=== PATIENT | female | born 1980 | race Caucasian/White ===

== ENCOUNTER 2023-08-10 16:55 | Outpatient (RCR) | payer BC, SELFPAY | END 2023-08-10 23:59 | disposition home or self-care (01) | LOC: RPT 16:55 | PROVIDERS: ATTENDING PHYSICIAN Nurse Practitioner | DX: S16.1XXD Strain of muscle, fascia and tendon at neck level, subsequent encounter (principal); Z73.6 Limitation of activities due to disability | CPT/HCPCS: 97010; 97110; 97140 ==

== ENCOUNTER 2023-09-05 16:54 | Outpatient (RCR) | payer BC, SELFPAY | END 2023-09-05 23:59 | disposition home or self-care (01) | LOC: RPT 16:54 | PROVIDERS: ATTENDING PHYSICIAN Nurse Practitioner | DX: S16.1XXD Strain of muscle, fascia and tendon at neck level, subsequent encounter (principal); Z73.6 Limitation of activities due to disability; R51.9 Headache, unspecified; R20.2 Paresthesia of skin; X58.XXXD Exposure to other specified factors, subsequent encounter | CPT/HCPCS: 97010; 97110; 97140 ==

== ENCOUNTER 2023-10-09 17:51 | Outpatient (RCR) | payer BC, SELFPAY | END 2023-10-09 23:59 | disposition home or self-care (01) | LOC: RPT 17:51 | PROVIDERS: ATTENDING PHYSICIAN Nurse Practitioner | DX: S16.1XXD Strain of muscle, fascia and tendon at neck level, subsequent encounter (principal); Z73.6 Limitation of activities due to disability; M54.6 Pain in thoracic spine; R20.0 Anesthesia of skin; R20.2 Paresthesia of skin | CPT/HCPCS: 97010; 97110; 97112; 97140 ==

== ENCOUNTER 2023-10-25 17:23 | Outpatient (RCR) | payer BC, SELFPAY | END 2023-10-25 23:59 | disposition home or self-care (01) | LOC: RPT 17:23 | PROVIDERS: ATTENDING PHYSICIAN Nurse Practitioner | DX: S16.1XXD Strain of muscle, fascia and tendon at neck level, subsequent encounter (principal); Z73.6 Limitation of activities due to disability | CPT/HCPCS: 97010; 97110; 97140 ==

== ENCOUNTER 2023-11-13 17:29 | Outpatient (RCR) | payer BC, SELFPAY | END 2023-11-13 23:59 | disposition home or self-care (01) | LOC: RPT 17:29 | PROVIDERS: ATTENDING PHYSICIAN Nurse Practitioner | DX: S16.1XXD Strain of muscle, fascia and tendon at neck level, subsequent encounter (principal); Z73.6 Limitation of activities due to disability | CPT/HCPCS: 97110; 97140 ==

== ENCOUNTER → 2023-11-20 15:49 | Outpatient (REF) | payer BC, SELFPAY | LOC: WDC 15:49 | PROVIDERS: ATTENDING PHYSICIAN Obstetrics & Gynecology; FAMILY PHYSICIAN Nurse Practitioner | DX: Z12.31 Encounter for screening mammogram for malignant neoplasm of breast (principal) | CPT/HCPCS: 77063; 77067 ==

== ENCOUNTER → 2024-03-19 20:59 | Outpatient (REF) | payer BC, SELFPAY | LOC: PAVMRI 20:59 | PROVIDERS: ATTENDING PHYSICIAN Physician Assistant Surgical; FAMILY PHYSICIAN Nurse Practitioner | DX: M25.572 Pain in left ankle and joints of left foot (principal) | CPT/HCPCS: 73721 ==

== ENCOUNTER → 2024-04-04 17:09 | Outpatient (REF) | payer BC, SELFPAY | LOC: CPAP 17:09 | PROVIDERS: ATTENDING PHYSICIAN Obstetrics & Gynecology | DX: Z01.419 Encounter for gynecological examination (general) (routine) without abnormal findings (principal); Z11.51 Encounter for screening for human papillomavirus (HPV) | CPT/HCPCS: 87624; G0123 ==

== ENCOUNTER → 2024-04-29 10:59 | Outpatient (REF) | payer BC, SELFPAY | LOC: DHSLP 10:59 | PROVIDERS: ATTENDING PHYSICIAN Internal Medicine; FAMILY PHYSICIAN Internal Medicine | DX: G47.19 Other hypersomnia (principal); R06.83 Snoring | CPT/HCPCS: 95800 ==

== ENCOUNTER → 2024-05-17 10:52 | Outpatient (REF) | payer BC, SELFPAY | LOC: CLAB 10:52 | PROVIDERS: ATTENDING PHYSICIAN Nurse Practitioner | DX: J06.9 Acute upper respiratory infection, unspecified (principal) | CPT/HCPCS: 87502; 87807 ==

== ENCOUNTER → 2024-06-04 11:47 | Outpatient (REF) | payer BC, SELFPAY | LOC: UCDH 11:47 | PROVIDERS: ATTENDING PHYSICIAN Emergency Medicine; FAMILY PHYSICIAN Nurse Practitioner | DX: J22 Unspecified acute lower respiratory infection (principal) | CPT/HCPCS: 71046 ==

== ENCOUNTER 2024-06-10 17:20 | Outpatient (RCR) | payer BC, SELFPAY | END 2024-06-10 23:59 | disposition home or self-care (01) | LOC: RPT 17:20 | PROVIDERS: ATTENDING PHYSICIAN Student in an Organized Health Care Education/Training Program; FAMILY PHYSICIAN Nurse Practitioner | DX: M25.572 Pain in left ankle and joints of left foot (principal); Z73.6 Limitation of activities due to disability; M25.472 Effusion, left ankle; R26.89 Other abnormalities of gait and mobility | CPT/HCPCS: 97110; 97162; 97535 ==

== ENCOUNTER → 2024-11-20 15:55 | Outpatient (REF) | payer BC, SELFPAY | LOC: WDC 15:55 | PROVIDERS: ATTENDING PHYSICIAN Obstetrics & Gynecology; FAMILY PHYSICIAN Nurse Practitioner | DX: Z12.31 Encounter for screening mammogram for malignant neoplasm of breast (principal) | CPT/HCPCS: 77063; 77067 ==

== ENCOUNTER 2025-01-17 11:30 | Emergency (ER) | payer BC, SELFPAY ==
[2025-01-17 11:45] VITALS: BP 148/88
[2025-01-17 12:33] VITALS: BP 134/95
[2025-01-17 13:00] VITALS: BP 119/85
[2025-01-17 13:45] LABS: Hematocrit 39.4 % (37.0-47.0); Hemoglobin 13.3 g/dL (12.0-16.0); Mean Corp Hgb Conc. 33.8 g/dL (33.0-37.0); Mean Corpuscular Volume 89.3 fL (81.0-99.0); Nucleated Red Blood Cells % 0 %; Platelet Count 369 10^3/uL (130-400); Red Cell Dist. Width 11.6 % (11.5-14.5)
[2025-01-17 13:55] LABS: ALT (SGPT) 20 U/L (0-35); AST (SGOT) 24 U/L (14-36); Albumin 4.7 g/dl (3.5-5.0); Alkaline Phosphatase 71 U/L (38-126); Blood Urea Nitrogen 12 mg/dl (7-17); Calcium 9.7 mg/dl (8.4-10.2); Carbon Dioxide 25 mmol/L (22-30); Chloride 104 mmol/L (98-107); Glucose 74 mg/dl (70-99); Potassium 4.5 mmol/L (3.5-5.1); Sodium 138 mmol/L (135-145); Total Protein 8.2 g/dl (6.3-8.2); eGFR > 60.00
[2025-01-17 14:00] VITALS: BP 116/90
[2025-01-17 14:06] LABS: D-Dimer 0.30 ug/mlFEU (0.00-0.50)
[2025-01-17 14:07] LABS: Troponin I < 0.012 ng/ml
--- NOTE | 2025-01-17 14:10 | ED.GENMED ---
History of Present Illness
General
Chief Complaint: Heart Rate Problem
Time Seen by Provider: 01/17/25 13:26
History of Present Illness
History of Present Illness:
44-year-old female with prior history of SVT on propranolol presenting to the emergency department for elevated heart rate and pain with deep inspiration. Patient reports symptoms started this morning, however when she went to work felt that they
worsen. 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 Patient is on control, however denies any history of blood clots, or any lower extremity
swelling. Notes a mild cough, nonproductive. Denies association with chest pain. Denies any fever. Does note family history of blood clots in her family. Reports that her heart rate is usually controlled, 70 to 80s. Denies additional acute
medical complaints
Past History
Past History
ED Past Medical History: HTN and Psychiatric (Anxiety\\depression)
ED Past Surgical History: Gynecological
Social History
Tobacco: Non-smoker
Personal:
Living: with family
Employment: Employed
Phy Exam
Physical Exam
Physical Exam:
General: Well-appearing, no clinical signs of dehydration, nontoxic and in no acute distress
HEENT: protecting airway
Neck: appears supple
CV: Tachycardic, regular rhythm, no evidence of cyanosis
Resp: No accessory muscle use, no increased work of breathing, lungs clear to auscultation bilaterally
Abd: no distension
Extremities: No deformities, no swelling, no erythema
Neuro: alert, no focal neurologic deficit
: deferred
Rectal: deferred
Psych: Normal affect
Skin: Intact
Course
Orders/Labs/Results
Orders:
Orders
01/17/25 11:31
EKG [Electrocardiogram (*1)] Urgent
Reason for Study: Palpitations
01/17/25 11:32
EKG- Treatment ONCE
01/17/25 13:32
Complete Blood Count/With Diff Urgent
Comprehensive Metabolic Panel Urgent
D-Dimer Urgent
HCG, Serum Qualitative Screen Urgent
Comment: ADD ON
Troponin I Urgent
01/17/25 14:09
CT Chest PE Study Urgent
Comment:
Reason For Exam: tachycardia, on BC, SOB, hx clots in family
01/17/25 14:13
Test Result ONCE
01/17/25 14:21
Add On- LAB Urgent
Tests Added?: Hcg qualitative
Abnormal Lab Results
01/17/25
13:32
WBC 17.0 H 10^3/uL
(4.8-10.8)
Abs Immat Gran (auto) 0.1 H 10^3/uL
(0-0.05)
Absolute Neuts (auto) 14.8 H 10^3/uL
(1.4-6.5)
Neutrophils % 86.9 H %
(42.2-75.2)
Lymphocytes % 8.4 L %
(20.5-51.1)
01/17/25 13:32
01/17/25 13:32
Vital Signs
Initial and Last Documented VS:
Initial Vital Signs
Temp Pulse Resp BP Pulse Ox
98.7 F 94 16 148/88 98
01/17/25 11:45 01/17/25 11:45 01/17/25 11:45 01/17/25 11:45 01/17/25 11:45
Last Documented Vital Signs
Temp Pulse Resp BP Pulse Ox
98.7 F 101 16 116/90 96
01/17/25 11:45 01/17/25 14:00 01/17/25 14:00 01/17/25 14:00 01/17/25 14:12
MDM/Problems Addressed
MDM/Problems Addressed:
44-year-old female with prior history of SVT on propranolol presenting to the emergency department for concern of tachycardia and pain with deep inspiration in her chest. Vital signs significant for tachycardia.
On exam, patient resting comfortably, no acute distress or discomfort. EKG obtained on arrival, sinus tachycardia, no arrhythmia. Patient's primary concern is PE, which is reasonable given that she is on control, family history of blood
clots in the past and patient's presenting symptoms. Notes that her heart rate is typically controlled. No ischemic abnormality on EKG, without present concern for ACS. Plan for laboratory analysis including dimer.
14:30 - Dimer and troponin within normal limits. However remains tachycardic at rest. For this reason we will proceed with CT PE. Of note, elevated white blood cell count. Patient notes some mild cough which started this morning. Possible
developing pneumonia
16:35 -CT without acute pathology. On reassessment patient remains a stable. At this time feel stable for discharge. Patient does note that she has issues with her sinus, has been having some sinus congestion. Possibly developing a sinus
infection. No present indication for antibiotics, however will prescribe amoxicillin, advised that if fever develops or increasing pain to start taking the medication. Patient also cautioned that if cough is worsening, development of fever, to
return to the hospital. Also advised follow-up with cardiology given presenting tachycardia. Return precautions discussed
*Pulse Oximetry
SaO2: 96
Oxygen Mode of Delivery: Room air
Patient hypoxic: no
*EKG
Interpreted by ED Provider?: Yes
EKG Intrepretation Date: 01/17/25
EKG Intrepretation Time: 14:30
Interpretation: normal
Heart Rate: 102
Rate: tachycardiac
Rhythm: sinus
[place]: normal axis
Interval: normal interval
QRS Pattern: normal QRS
Ischemia: no ischemia
*Critical Care Note
Total Time (30-74mins, 75-104mins- exclusive of procedures): Not Applicable
ED Attending Note
-
Portions of this chart may have been created with voice recognition software.� Occasional wrong word or��sound alike� substitutions may have occurred due to the inherent limitations of voice recognition software.
Discharge Plan
Departure
Patient Disposition: Home (Routine Discharge)
Date of Disposition: 01/17/25
Time of Disposition: 16:35
Patient with high blood pressure during this ER visit?: No
Condition: Good
Discharge Problem:
Tachycardia, Near syncope
Instructions: Tachycardia, Near Fainting (DC)
Prescriptions:
New
amoxicillin-pot clavulanate 875-125 mg tablet
1 tab PO BID 7 Days Qty: 14 0RF
No Action
No Current Medications
meclizine 25 MG tablet
25 mg PO Q8HPRN PRN (Reason: vertigo) Qty: 15 0RF
ibuprofen 600 MG tablet
600 mg PO Q6 Qty: 20 0RF
Referrals:
Chantel Muñoz CRNP [Family Provider, Internal Medicine]
Activity Restrictions/Additional Instructions:
You were seen in the emergency department for elevated heart rate and a near passing out episode
You were found to have reassuring EKG, laboratory analysis, vital signs, CT imaging of your chest. We recommend that you follow-up with a financial sales assistant. Right blood cell count was slightly elevated which could be indicative of infection. If you
start to develop worsening cough, fever or difficulty breathing, please follow-up with your doctor or return immediately to the hospital
Return to the emergency department for any worsening of your symptoms, or any development of chest pain, difficulty breathing, abdominal pain with persistent vomiting and inability to tolerate food or liquid by mouth (concern for dehydration),
weakness, headache or confusion, fever greater than 100.4, or any additional symptoms that are concerning to you.
Thank you for choosing [facility].
Interventions
Interventions:
*Risk Screen - Suicide Last Done: 01/17/25 11:45
*General Assessment Last Done: 01/17/25 14:10
*Neglect/Abuse Screening Last Done: 01/17/25 11:45
*ED- Fall Risk Assessment Last Done: 01/17/25 14:10
*ED COVID-19 Vaccine History Last Done: 01/17/25 14:10
*Nursing Disposition Last Done: 01/17/25 17:54
ED- Cardiac Assessment Last Done: 01/17/25 14:09
ED- Pulmonary Assessment Last Done: 01/17/25 14:09
Discharge Date and Time
Discharge Date/Time: 01/17/25 17:54
Print Language: PANAMANIAN
[2025-01-17 14:44] LABS: HCG, Serum Qualitative Screen Negative
== END 2025-01-17 17:54 | disposition home or self-care (01) ==
LOC: EMR 11:30
PROVIDERS: EMERGENCY PHYSICIAN Student in an Organized Health Care Education/Training Program; FAMILY PHYSICIAN Nurse Practitioner
DX: R00.0 Tachycardia, unspecified (principal); R55 Syncope and collapse
CPT/HCPCS: 99285; 71275; 80053; 84484; 84703; 85025; 85379; 93005; Q9967

== ENCOUNTER → 2025-04-07 09:12 | Outpatient (REF) | payer BC, SELFPAY ==
[2025-04-11 04:01] LABS: HPV, High Risk Detected; HPV, High Risk Source Cervical
== END ==
LOC: CPAP 09:12
PROVIDERS: ATTENDING PHYSICIAN Obstetrics & Gynecology
DX: Z01.419 Encounter for gynecological examination (general) (routine) without abnormal findings (principal); Z11.51 Encounter for screening for human papillomavirus (HPV)
CPT/HCPCS: 87624; G0123

== ENCOUNTER → 2025-04-12 09:08 | Outpatient (REF) | payer BC, SELFPAY ==
[2025-04-12 09:59] LABS: Hematocrit 40.2 % (37.0-47.0); Hemoglobin 12.9 g/dL (12.0-16.0); Mean Corp Hgb Conc. 32.1 g/dL (33.0-37.0); Mean Corpuscular Volume 94.4 fL (81.0-99.0); Nucleated Red Blood Cells % 0 %; Platelet Count 364 10^3/uL (130-400); Red Cell Dist. Width 11.8 % (11.5-14.5)
[2025-04-12 10:33] LABS: ALT (SGPT) 22 U/L (0-35); AST (SGOT) 22 U/L (14-36); Albumin 4.4 g/dl (3.5-5.0); Alkaline Phosphatase 84 U/L (38-126); Blood Urea Nitrogen 13 mg/dl (7-17); C-Reactive Protein 6.20 mg/L (0.0-10.00); Calcium 9.5 mg/dl (8.4-10.2); Carbon Dioxide 24 mmol/L (22-30); Chloride 103 mmol/L (98-107); Glucose 89 mg/dl (70-99); HDL Cholesterol 44 mg/dl; LDL Cholesterol, Calculated 112 mg/dl; Potassium 4.3 mmol/L (3.5-5.1); Sodium 137 mmol/L (135-145); Total Protein 7.7 g/dl (6.3-8.2); Very Low Density Lipoprotein 19 mg/dl (0-30); eGFR > 60.00
[2025-04-12 10:50] LABS: FSH 7.8 mIU/ml
[2025-04-12 10:52] LABS: Vitamin D, 25-OH*** 39.4 ng/mL (30-80)
[2025-04-12 11:04] LABS: TSH 0.71 uIU/ml (0.47-4.68)
[2025-04-12 12:07] LABS: Vitamin B12 636 pg/ml (239-931)
== END ==
LOC: REG 09:08
PROVIDERS: ATTENDING PHYSICIAN Nurse Practitioner
DX: F41.9 Anxiety disorder, unspecified (principal); G43.009 Migraine without aura, not intractable, without status migrainosus; G47.63 Sleep related bruxism; R29.2 Abnormal reflex; F07.81 Postconcussional syndrome; N95.1 Menopausal and female climacteric states; E03.9 Hypothyroidism, unspecified; R79.9 Abnormal finding of blood chemistry, unspecified; E53.9 Vitamin B deficiency, unspecified; E56.9 Vitamin deficiency, unspecified
CPT/HCPCS: 36415; 80053; 80061; 82306; 82607; 82627; 82681; 83001; 83002; 84270; 84402; 84403; 84443; 85025; 85652; 86140

== ENCOUNTER → 2025-04-16 14:38 | Outpatient (REF) | payer BC, SELFPAY | LOC: CLAB 14:38 | PROVIDERS: ATTENDING PHYSICIAN Student in an Organized Health Care Education/Training Program | DX: N90.89 Other specified noninflammatory disorders of vulva and perineum (principal) | CPT/HCPCS: 88305 ==

== ENCOUNTER → 2025-04-25 07:33 | Outpatient (REF) | payer BC, SELFPAY | LOC: MRI 07:33 | PROVIDERS: ATTENDING PHYSICIAN Otolaryngology; FAMILY PHYSICIAN Nurse Practitioner | DX: H90.A21 Sensorineural hearing loss, unilateral, right ear, with restricted hearing on the contralateral side (principal) | CPT/HCPCS: 70553; A9575 ==

== ENCOUNTER → 2025-05-13 17:23 | Outpatient (REF) | payer BC, SELFPAY | LOC: CLAB 17:23 | PROVIDERS: ATTENDING PHYSICIAN Obstetrics & Gynecology | DX: R87.810 Cervical high risk human papillomavirus (HPV) DNA test positive (principal) | CPT/HCPCS: 88305 ==

== ENCOUNTER 2025-05-27 06:47 | Outpatient (RCR) | payer BC, SELFPAY | END 2025-05-27 23:59 | disposition home or self-care (01) | LOC: RPT 06:47 | PROVIDERS: ATTENDING PHYSICIAN Otolaryngology; FAMILY PHYSICIAN Nurse Practitioner | DX: R42 Dizziness and giddiness (principal); Z73.6 Limitation of activities due to disability; R26.89 Other abnormalities of gait and mobility; H93.11 Tinnitus, right ear; H91.91 Unspecified hearing loss, right ear; Z87.820 Personal history of traumatic brain injury | CPT/HCPCS: 97112; 97162 ==